=== PATIENT | male | born 1960 | race Hispanic/Latino ===

== ENCOUNTER 2018-06-04 13:12 | Outpatient (CLI) | payer OTHER | END 2018-06-04 13:13 | disposition home or self-care (01) | LOC: BICRAD 13:12 | PROVIDERS: ATTEND Family Medicine | DX: R10.13 Epigastric pain (principal); R10.32 Left lower quadrant pain; K21.0 Gastro-esophageal reflux disease with esophagitis | CPT/HCPCS: 71046; 74018 ==

== ENCOUNTER 2018-06-09 07:32 | Outpatient (CLI) | payer OTHER | END 2018-06-09 07:33 | disposition home or self-care (01) | LOC: BICULT 07:32 | PROVIDERS: ATTEND Family Medicine | DX: R10.32 Left lower quadrant pain (principal); K21.0 Gastro-esophageal reflux disease with esophagitis; R10.13 Epigastric pain; K76.0 Fatty (change of) liver, not elsewhere classified | CPT/HCPCS: 76700; 76857 ==

== ENCOUNTER 2020-08-08 09:22 | Outpatient (CLI) | payer OTHER ==
--- NOTE | 2020-08-08 10:00 | RAD ---
XR Chest 1 View History: Pneumonia Comparison: None. Findings: Lungs are clear. No pneumothorax or effusion. Cardiac silhouette and mediastinal contours a re within normal limits. No acute osseous abnormality. Impression: No acute intrathoracic abnormality.
== END 2020-08-08 09:23 | disposition home or self-care (01) ==
LOC: BICRAD 09:22
PROVIDERS: ATTEND Family Medicine
DX: J18.9 Pneumonia, unspecified organism (principal)
CPT/HCPCS: 71045